=== PATIENT | female | born 1995 | race Caucasian/White ===

== ENCOUNTER 2017-06-02 15:24 | Emergency (ER) | payer SELFPAY ==
--- NOTE | 2017-06-02 16:38 | UC ---
Hand/Wrist HPI - HPI Summary HPI Summary: foosh right hand 2 days ago- pain right 5th MC - History Of Current Complaint Chief Complaint: UCUpperExtremity Stated Complaint: HAND INJURY Time Seen by Provider: 06/02/17 16:30 Hx Obtained From: Patient Hx Last Menstrual Period: 05/12/17 ?: No Mechanism Of Injury: FOOSH Onset/Duration: Sudden Onset, Lasting Days - 2 Severity Initially: Moderate Severity Currently: Moderate Pain Intensity: 5 Pain Scale Used: 0-10 Numeric Character Of Pain: Aching, Throbbing Aggravating Factor(s): Movement Alleviating Factor(s): Rest, Ice Associated Signs And Symptoms: Positive: Swelling, Bruising Related History: Dominant Hand Right - Allergies/Home Medications Allergies/Adverse Reactions: Allergies Allergy/AdvReac Type Severity Reaction Status Date / Time No Known Allergies Allergy Verified 06/02/17 15:34 PMH/Surg Hx/FS Hx/Imm Hx Previously Healthy: Yes - Surgical History Surgical History: Yes Surgery Procedure, Year, and Place: left hand fx - Family History Known Family History: Positive: None - Social History Occupation: Unemployed Lives: With Family Alcohol Use: Occasionally Substance Use Type: None Smoking Status (MU): Heavy Every Day Tobacco Smoker Review of Systems Constitutional: Negative Skin: Negative Eyes: Negative ENT: Negative Respiratory: Negative Cardiovascular: Negative Gastrointestinal: Negative Genitourinary: Negative Motor: Negative Neurovascular: Negative Musculoskeletal: Arthralgia - right 5th mc pain Neurological: Negative Psychological: Negative All Other Systems Reviewed And Are Negative: Yes Physical Exam Triage Information Reviewed: Yes Appearance: Well-Appearing, No Pain Distress, Well-Nourished Vital Signs: Initial Vital Signs Temp 97.7 F 06/02/17 15:31 Pulse 92 06/02/17 15:31 Resp 18 06/02/17 15:31 BP 125/86 06/02/17 15:31 Pulse Ox 97 06/02/17 15:31 Vital Signs Reviewed: Yes Eye Exam: Normal Eyes: Positive: Conjunctiva Clear ENT Exam: Normal ENT: Positive: Normal ENT inspection, Hearing grossly normal, Pharynx normal. Negative: Nasal congestion, Nasal drainage, Trismus, Muffled voice, Hoarse voice , Dental tenderness, Sinus tenderness Dental Exam: Normal Neck exam: Normal Neck: Positive: Supple, Nontender Respiratory Exam: Normal Respiratory: Positive: Chest non-tender, No respiratory distress, No accessory muscle use Cardiovascular Exam: Normal Cardiovascular: Positive: RRR, Pulses Normal, Brisk Capillary Refill Musculoskeletal Exam: Normal - right fifth MC area, Other Musculoskeletal: Positive: Edema @ Neurological Exam: Normal Neurological: Positive: Alert, Muscle Tone Normal Psychological Exam: Normal Skin Exam: Normal Diagnostics - Radiology No standard instances Xray Interpretation: Positive (See Comments) - comminuted displaced fracture of distal 5th mc Radiology Interpretation Completed By: Radiologist Re-Evaluation - Re-Evaluation First Eval Change: Improved - ulnar gutter splint applied- n/m/c intact distally before and after Hand/Wrist Course/Dx - Course Course Of Treatment: Rice, Splint, sling, pain control follow with ortho in 1 day - Differential Dx/Diagnosis Provider Diagnoses: Displaced comminuted fracture of distal right 5th Metacarpal Discharge - Discharge Plan Condition: Good Disposition: HOME Prescriptions: HYDROcodone/ACETAMIN 5-325 MG* [[place] 5-325 TAB*] 1 tab PO Q6H PRN #20 tab MDD 4 PRN Reason: Pain - Moderate To Severe Ibuprofen TAB* [Motrin TAB* 600 MG] 600 mg PO Q6H PRN #30 tab PRN Reason: Pain - Mild To Moderate Patient Education Materials: Hand Fracture (ED), R.I.C.E. Treatment (ED) Referrals: Ralf Donohue MD [Medical Doctor] - 1 Day
--- NOTE | 2017-06-02 17:23 | RAD ---
INDICATION: Right fifth metacarpal injury COMPARISON: Not TECHNIQUE: AP, lateral, and oblique views were obtained. FINDINGS: There is an angulated and comminuted fractures involving the distal diaphysis of the fifth metacarpal with associated soft tissue swelling. No other fractures are evident.. IMPRESSION: ANGULATED FIFTH METACARPAL FRACTURE.
[2017-06-02 17:47] VITALS: BP 131/71
== END 2017-06-02 18:03 | disposition home or self-care (01) ==
LOC: UCEAST 15:24
DX: S62.336A Displaced fracture of neck of fifth metacarpal bone, right hand, initial encounter for closed fracture (principal); W19.XXXA Unspecified fall, initial encounter; Y93.9 Activity, unspecified; Y92.9 Unspecified place or not applicable; F17.210 Nicotine dependence, cigarettes, uncomplicated
CPT/HCPCS: 99202; G0463